=== PATIENT | male | born 2000 | race Caucasian/White ===

== ENCOUNTER 2020-10-10 22:22 | Emergency (ER) | payer MEDICAID ==
[~2020-10-10 22:22] MED LIST: ASPI-86; DULO30CA; FAMO20TA5; FERR28TA; HYDR50TA3; LTN005OP2; MEMA10TA; MULT-608; POTA20TA15; QUET50TA; TRZ100T; [UNRECOGNIZED DRUG - CODE]; [UNRECOGNIZED DRUG - CODE] PO
[2020-10-10] MEDS ORDERED: CEPH500T PO (23:22)
--- NOTE | 2020-10-10 23:22 | ED Upper Extremity ---
General Chief Complaint: Laceration Stated Complaint: L ARM INJURY Source: patient History of Present Illness Date Seen by Provider: Oct 10, 2020 Time Seen by Provider: 23:15 Initial Comments PT ARRIVES VIA POV-AUNT BROUGHT HIM HERE STATES AT 1300 TODAY, HE WAS REACHING FOR A KITCHEN KNIFE, AND IT FELL AND CUT HIS LEFT FOREARM STATES THIS OCCURRED IN [place] WHILE HE WAS "WHERE HIS SON LIVES" ( PT STATES HE LIVES HERE WITH HIS AUNT ) PT DENIES ANY SUICIDAL THOUGHTS, AND STATES THAT HE DID NOT INTENTIONALLY CUT HIMSELF PT IS RIGHT HANDED NO PRIOR INJURY TO THIS ARM LAST TETANUS IS > 5 YEARS AGO PCP: NONE Allergies and Home Medications Allergies Coded Allergies: NKANo Known Allergies (Unverified Allergy, Mild, 06/25/08) Patient Home Medication List Home Medication List Reviewed: Yes Acetaminophen With Codeine (Capital With Codeine Susp) 473 Ml Oral.susp, 1-2 TSP PO Q4HR PRN Prescribed by: ALY BULLARD on 06/25/08 220 Cephalexin (Cephalexin) 500 Mg Tablet, 500 MG PO QID Prescribed by: ASAD BERNARD on 10/10/20 2322 Review of Systems Constitutional: no symptoms reported Musculoskeletal: see HPI Skin: see HPI Psychiatric/Neurological: No Symptoms Reported Past Nxtupqv-Jpgfwe-Twrccz Hx Patient Social History Tobacco Use?: Yes Use of E-Cig and/or Vaping dev: Yes E-Cig or Vaping type used: Nicotine Substance use?: No Alcohol Use?: Yes Alcohol Frequency: Once in a while Immunizations Up To Date Tetanus Booster (TDap): More than 5yrs Past Medical History Surgery/Hospitalization HX: WISDOM TEETH REMOVED Respiratory: No Cardiac: No Neurological: No Genitourinary: No Gastrointestinal: No Musculoskeletal: No Endocrine: No HEENT: Yes (WISDOM TEETH REMOVED) Cancer: No Psychosocial: No Integumentary: No Blood Disorders: No Physical Exam Vital Signs Vital Signs - First Documented 10/10/20 23:05 Temp 36.4 Pulse 74 Resp 16 B/P (MAP) 144/90 (108) Pulse Ox 99 O2 Delivery Room Air Capillary Refill : Height, Weight, BMI Height: '" Weight: lbs. oz. kg; BMI Method: General Appearance: WD/WN, no apparent distress Elbow/Forearm: Left (DORSAL ASPECT OF LEFT FOREARM WITH LINEAR 3.5 CM FAIRLY SUPERFICIAL LACERATION--DEEP STRUCTURES INTACT. NO BLEEDING. PT HAS 3 ADDITIONAL SUPERFICIAL. PARALLEL/EVENLY SPACED LINEAR LACERATIONS NEXT TO THE LACERATION. DISTAL MOTOR/SENSORY/VASCULAR INTACT. ) Procedures/Interventions Other Wound Location LEFT FOREARM Wound Length (cm): 3.5 Wound's Depth, Shape: linear, sub Q Betadine Prep?: No (BETASEPT) Anesthesia: Lidocaine w/ Epi (1%) Staple Repair: Stapler 35W Sterile Dressing Applied?: Yes Progress 7 JOANNE PLACED Progress/Results/Core Measures Results/Orders My Orders Orders - ASAD BERNARD DO Dipht,Pertuss(Acell),Tet Adult (Boostrix (10/10/20 23:30) Cephalexin Capsule (Keflex Capsule) (10/10/20 23:30) Medications Given in ED Current Medications Medications Dose Ordered Sig/Sridevi Route Start Time Stop Time Status Last Admin Dose Admin Diphtheria/ Tetanus/Acell Pertussis 0.5 ml ONCE ONCE IM 10/10/20 23:30 10/10/20 23:31 DC 10/10/20 23:31 0.5 ML Vital Signs/I&O 10/10/20 10/10/20 23:05 23:36 Temp 36.4 36.4 Pulse 74 74 Resp 16 16 B/P (MAP) 144/90 (108) 144/90 Pulse Ox 99 99 O2 Delivery Room Air Room Air Departure Impression Primary Impression: Laceration of left forearm Additional Impression: Oufcnsvkmf-zrpkkyzim-rfseuos (DPT) vaccination administered at current visit Disposition: 01 HOME, SELF-CARE Condition: Stable Departure-Patient Inst. Decision time for Depature: 23:33 [place]: [facility] [place] Primary Care Physician Patient Instructions: Laceration Repair With [facility], Diphtheria and Tetanus Toxoids, and Acellular Pertussis Vaccine Add. Discharge Instructions: CLEAN WOUND TWICE A DAY WITH ANTIBACTERIAL SOAP AND WATER, APPLY FRESH DRESSING TWICE A DAY JOANNE OUT IN 10 DAYS--RETURN TO ER FOR REMOVAL TYLENOL AND MOTRIN NEEDED FOR PAIN All discharge instructions reviewed with patient and/or family. Voiced understanding. Scripts Cephalexin (Cephalexin) 500 Mg Tablet 500 MG PO QID, #40 TAB Prov: ASAD BERNARD DO 10/10/20 ASAD BERNARD DO Oct 10, 2020 23:22
[2020-10-10] MEDS ORDERED: CEPHALEXIN 250 MG (KEFLEX) CAP PO SCH (23:30)
[2020-10-10] MEDS ORDERED: TETANUS,DIPTH,PERTUSS P/F (BOOSTRIX) 0.5 ML VIAL IM ONE (23:30)
[2020-10-10 23:36] VITALS: BP 144/90
== END 2020-10-10 23:36 | disposition home or self-care (01) ==
LOC: EDUNIT# 22:22 → ER 22:25
DX: S51.812A Laceration without foreign body of left forearm, initial encounter (principal); Z23 Encounter for immunization; W26.0XXA Contact with knife, initial encounter
CPT/HCPCS: 90715; 99284

== ENCOUNTER 2020-10-18 14:53 | Emergency (ER) | payer MEDICAID ==
[~2020-10-18] VITALS: Ht 193 cm; Wt 104.3 kg
[~2020-10-18 14:53] MED LIST changes: +CEPH500T PO
[2020-10-18 15:22] VITALS: BP 142/85
== END 2020-10-18 15:27 | disposition home or self-care (01) ==
LOC: EDUNIT# 14:53 → ER 14:54
DX: Z48.02 Encounter for removal of sutures (principal)